=== PATIENT | male | born 1950 | race American Indian/Alaskan Native ===

== ENCOUNTER 2017-07-30 07:53 | Day surgery (SDC) | payer MEDICARE ==
[2017-07-30] MEDS ORDERED: WATER FOR IRRIG STERILE IR ONE (08:38)
[2017-07-30] MEDS ORDERED: WATER FOR IRRIG STERILE ONE (08:38)
[2017-07-30] MEDS ORDERED: NACL 0.9% 1000 ML 1,000 ML ONE (08:42)
--- NOTE | 2017-07-30 08:54 | Anesthesia Consultation ---
Anesthesia Consult and Med Hx Date of service: 07/30/17 - Airway Anesthetic Teeth Evaluation: Good ROM Head & Neck: Adequate Mental/Hyoid Distance: Adequate Mallampati Class: Class I Intubation Access Assessment: Good - Pulmonary Exam CTA: Yes - Cardiac Exam Cardiac Exam: RRR - Pre-Operative Health Status ASA Pre-Surgery Classification: ASA3 Proposed Anesthetic Plan: General - Pulmonary Hx Smoking: Yes (1 PPD CIGARETTES X 30 YRS) SOB: Yes (SOB W/ MOD. 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 Edentulous upper, several missing lower. All in tact. BP, HR manageable without need for beta shirin.
--- NOTE | 2017-07-30 08:54 | Anesthesia Day of Surgery ---
Anesthesia Day of Surgery - Day of Surgery Patient Examined: Yes Patient H&P Reviewed: Yes Patient is NPO: Yes Beta Blockers: No (Not necessary.)
[2017-07-30] MEDS ORDERED: DIPRIVAN 10 MG/ML IV ONE ×2 (08:56)
--- NOTE | 2017-07-30 09:16 | Short Stay Summary ---
Short Stay Documentation Date of service: 07/30/17 Narrative H&P: 67 year old presents for colonoscopy for average risk colon screening. Previous colonoscopy ~10+ years ago reportedly normal. He voices a new complaint of intermittent dysphagia to solids which has not yet been evaluated. - History Principal diagnosis: average risk colon screening H&P: obtained from office Past Medical History: heart failure, hypertension, other (AICD) Past Surgical History: Other (spinal surgery, implantation of pacemaker/ defibrillator) - Allergies and Medications Current Medications: Allergies No Known Allergies Allergy (Verified 06/18/13 14:12) Home Medications Medication Instructions Recorded Confirmed Last Taken Type Aspirin EC [Aspirin Enteric Coated 81 mg PO QDAY 11/28/12 07/30/17 07/26/17 12: 00 History TAB] Carvedilol 25 mg PO BID 11/28/12 07/30/17 07/29/17 09:00 History Losartan Potassium 100 mg PO DAILY 11/28/12 07/30/17 07/23/17 06:30 History Oxycodone HCl/Acetaminophen 1 each PO Q6H PRN 11/28/12 07/30/17 08/16/16 History [Endocet 5-325 mg] Pravastatin Sodium 20 mg PO DAILY 08/31/14 07/30/17 07/29/17 17:00 History Hydrochlorothiazide 25 mg PO DAILY 09/01/14 07/30/17 07/29/17 09:00 History Active Medications Sodium Chloride (Nacl 0.9% 1000 Ml) 1,000 mls @ 50 mls/hr IV DIRECT GIANNI - Physical exam General appearance: no acute distress, well-nourished HEENT: PERRLA, EOMI Lungs: Clear to auscultation Heart: Regular rate, Normal S1, Normal S2 Gastrointestinal: normal Neurological: Normal speech - Hospital course Hospital course: Uneventful colonoscopy. - Disposition Condition at discharge: Good Disposition: DC-[id number] TO HOME OR SELFCARE - Discharge Diagnoses (1) Encounter for screening colonoscopy for [id number] patient Status: Acute Short Stay Discharge Plan Activity: other (no driving today) Diet: other (may resume usual diet) Additional Instructions: 1. Repeat colonoscopy in 10 years for colon screening. 2. Schedule office appointment to discuss new complaint of dysphagia and appropriate measures to evaluate and treat. Follow up with: GRANT BAUMAN MD [Primary Care Provider] - 7 Days
[2017-07-30] MEDS ORDERED: NACL 0.9% 1000 ML 1,000 ML IV SCH (10:00)
[2017-07-30 10:20] VITALS: BP 102/59
--- NOTE | 2017-07-30 10:47 | Operative Report ---
Operative Report Operative Report: Date of procedure: 07/30/2017 Preprocedure diagnosis: Average risk colon screening Post procedure diagnosis: Internal hemorrhoids Procedure name(s): Colonoscopy Surgeon: Gregg Michaels MD Anesthesia: Monitored anesthesia care EBL: None Procedure: The indications, techniques, potential complications and alternatives , had been discussed in full detail prior to the date of the exam, and once again on the day of the exam. Questions were encouraged and answered, and consent was thereby obtained. The patient was placed in the left lateral decubitus position, and was medicated by anesthesia services. See the anesthesia records for details. The anal sphincter was digitally dilated. The digital exam was unremarkable. The tip of the [employer] videocolonoscope was inserted through the anal sphincter and into the rectal vault. It was then advanced proximally under continuous visualization of the lumen to the cecum without difficulty. The prep was good and landmarks were identified without difficulty. No pathology was seen in the cecum. The appendiceal orifice and ileocecal valve appeared normal. From the cecum, the instrument was slowly withdrawn, with careful circumferential examination of the colonic mucosa. No pathology was seen in the ascending colon , hepatic flexure, transverse colon, splenic flexure, descending colon, sigmoid colon or the rectum from the forward view. Retroflexion in the rectum revealed internal hemorrhoids without stigmata of bleeding. No other pathology was seen. The instrument was straightened and withdrawn. The procedure was very well tolerated. Postprocedure he was monitored in the recovery area of the GI lab to ensure stability prior to his release. CV outpatient record for details regarding instructions to patient, medications and plans for follow-up. Final diagnosis: Internal hemorrhoids, otherwise normal colonoscopy to the cecum Colon screening information: Previous colonoscopy 10 or more years ago, next colonoscopy for screening purposes in 10 years Gregg Michaels M.D. Dictated 07/30/2017
--- NOTE | 2017-07-30 14:23 | Post Anesthesia Evaluation ---
- Post Anesthesia Evaluation Patient Participated: Yes Airway Patent: Yes Stable Respiratory Function: Yes Nausea/Vomiting: No Temp > 96.8F: Yes Pain Manageable: Yes Adequeate Hydration: Yes Anesthesia Complications: No
== END 2017-07-30 07:54 | disposition home or self-care (01) ==
LOC: GIO 07:53
PROVIDERS: ATTEND Internal Medicine Gastroenterology
DX: Z12.11 Encounter for screening for malignant neoplasm of colon (principal); K64.8 Other hemorrhoids; I10 Essential (primary) hypertension; F41.9 Anxiety disorder, unspecified; F17.210 Nicotine dependence, cigarettes, uncomplicated; G47.30 Sleep apnea, unspecified; B19.20 Unspecified viral hepatitis C without hepatic coma; Z86.73 Personal history of transient ischemic attack (TIA), and cerebral infarction without residual deficits; Z95.810 Presence of automatic (implantable) cardiac defibrillator; Z98.890 Other specified postprocedural states; Z79.82 Long term (current) use of aspirin
CPT/HCPCS: 45378; J2704; J7030

== ENCOUNTER 2017-09-19 11:33 | Day surgery (SDC) | payer MEDICARE ==
[~2017-09-19 11:33] MED LIST: ANCEF/STERILE WATER 2 GM/20 ML 2 GM/20 ML SYRINGE IV NR
[2017-09-19] MEDS ORDERED: LACTATED RINGERS 1,000 ML ONE (13:20)
[2017-09-19] MEDS ORDERED: ANCEF/STERILE WATER 2 GM/20 ML IV NR (14:00)
[2017-09-19] MEDS ORDERED: LACTATED RINGERS 1,000 ML IV SCH (14:00)
[2017-09-19] MEDS ORDERED: DIPRIVAN 10 MG/ML IV ONE (14:34)
[2017-09-19] MEDS ORDERED: WATER FOR IRRIG STERILE IR ONE ×2 (14:34)
[2017-09-19] MEDS ORDERED: XYLOCAINE MPF 2% ONE (14:34)
[2017-09-19] MEDS ORDERED: DILAUDID ONE (14:36)
[2017-09-19] MEDS ORDERED: ZOFRAN ONE (14:56)
[2017-09-19] MEDS ORDERED: DECADRON ONE (14:56)
--- NOTE | 2017-09-19 15:32 | Operative Report ---
PREOPERATIVE DIAGNOSIS: Recurrent bladder cancer. POSTOPERATIVE DIAGNOSIS: Recurrent bladder cancer. PROCEDURE: Cystoscopy. PROCEDURE: Excision of bladder tumor, right posterior lateral wall, retrogrades and random biopsy. SURGEON: Dixon Gardner MD ANESTHESIA: General. 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 He is a heavy long time smoker. He now presents for cystoscopy. DESCRIPTION OF PROCEDURE: The patient was brought to the operating room and placed on the operating table. Following induction of anesthesia, placed in lithotomy position, prepped and draped in usual sterile fashion. Cystourethroscopy showed a small tumor in right posterior wall. This was mostly flat, so a resectoscope probably would destroy most of the pathology. We used a curved cup biopsy and removed the entire tumor. The area was cauterized. We got deeper biopsies as well. We did random biopsies. The patient tolerated the procedure well. Retrograde showed the and the collecting system delicate with some air bubbles, which drained under fluoroscopy. The patient tolerated the procedure well and brought to recovery in stable condition. JOB# [id number] BEE/SARA
[2017-09-19] MEDS ORDERED: ZOFRAN IV PRN (15:44)
[2017-09-19] MEDS ORDERED: DILAUDID IV PRN (15:44)
[2017-09-19] MEDS ORDERED: NACL 0.9% 2,000 ML ONE (16:56)
[2017-09-19 18:14] VITALS: BP 141/78
--- NOTE | 2017-09-20 07:44 | Fluoroscopy Report ---
[facility] UROGRAPHY INDICATION: Bladder tumor. COMPARISON: 02/10/2015. IMAGES/CINE CLIPS: 8 FINDINGS: [employer] images from 2:46 PM again demonstrates numerous pelvic surgical clips, left much more than right. Atherosclerotic vascular calcifications and mid to lower lumbar degenerative spurring also noted. 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 CONCLUSION: Fluoroscopic assistance provided for cystoscopy, biopsy and excision of bladder tumor and bilateral RPGs, as above. Please also correlate with Dr. Gardner's procedural notes. Thank you for the opportunity to participate in this patient's care.
== END 2017-09-19 11:34 | disposition home or self-care (01) ==
LOC: OR 11:33
PROVIDERS: ATTEND Urology
DX: D30.3 Benign neoplasm of bladder (principal); N41.1 Chronic prostatitis; F17.210 Nicotine dependence, cigarettes, uncomplicated; Z79.82 Long term (current) use of aspirin; Z85.51 Personal history of malignant neoplasm of bladder
CPT/HCPCS: 36415; 52234; 74420; 84132; 88305; A4217; J0690; J1100; J1170; J2405; J2704; J7120; Q9967